=== PATIENT | female | born 1965 | race Caucasian/White ===

== ENCOUNTER 2019-12-18 09:47 | Inpatient (IN) ==
--- NOTE | 2019-08-28 11:57 | Anesthesiology Consultation ---
Date of Service August 28, 2019 Assessment & Plan (1) Encounter for pre-operative examination: PCP Clearance 08/20/19 = "Patient is medically stable for surgery." Chart Review Chart Review: Acceptable Risk for Surgery and Patient seen in Pre Admission Testing (08/17/19. Case R/S under new V#) Teaching & Discussion Instructed NPO after midnight before surgery, except medications with 15 cc of water. Medication instructions provided according to the PAT guidelines. History Surgery Operation Date: 10/15/19 09:10 Proposed Procedures p Right Anterior Total Hip Arthroplasty - Karthikeyan Tillman DO Height/Weight Height: 5 ft 2 in Weight: 86.2 kg Allergies Allergy/AdvReac Type Severity Reaction Status Date / Time latex Allergy Mild redness, Verified 08/28/19 11:07 pruritus, swelling tetanus toxoid, adsorbed Allergy Mild redness, Verified 08/28/19 11:07 swelling at injection site Medications Home Medications Medication Instructions Recorded Confirmed Last Taken aspirin [Aspirin Low Dose] 81 mg PO QAM 08/10/19 08/28/19 Unknown cyanocobalamin (vitamin B-12) 500 mcg PO QAM 08/10/19 08/28/19 Unknown [Vitamin B-12] ferrous sulfate 325 mg PO QAM 08/10/19 08/28/19 Unknown lansoprazole 30 mg PO QAM 08/10/19 08/28/19 Unknown melatonin 10 mg PO HS 08/10/19 08/28/19 Unknown meloxicam 15 mg PO QAM 08/10/19 08/28/19 Unknown multivitamin 1 tab PO QAM 08/10/19 08/28/19 Unknown Past Medical History Medical History Anemia Fibromyalgia History of kidney stones Hx of heartburn Obesity Osteoarthritis Rheumatoid arthritis 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, taking Meloxicam for OA Exercise / Class Metabolic Activity II 4-5 Yardwork/Stairs/Walk up hill Past Family History Family History Grandmother (Maternal) Family history of diabetes mellitus Mother Family history of diabetes mellitus Past Surgical History Surgical History History of partial hysterectomy History of total left hip replacement Hx of cholecystectomy Hx of ovarian cystectomy Hx of partial thyroidectomy Nausea and vomiting after administration of anesthetic agent Past Anesthesia History No Hx of Anesthesia Complications (other than PONV) and No Family Hx of Anesthesia Complications History of PONV No Hx of Motion Sickness and History of PONV Social History Smoking Status: Never smoker Do You Dip or Chew Tobacco: No Hx Alcohol Use: No Hx Substance Use: No Review of Systems Pt denies any recent chest pain, shortness of breath, palpitations, cough, fever or URI. Physical Exam Vital Signs Vital Signs BP: 115/69 P: 70bpm SPO2: 97% RA T: 97.6 F R: 12 ENMT Mouth: + dental restorations (fillings only) and + chipped teeth (lower L molar); no loose teeth Thyromental Distance: > or= 3.5 Finger Breadths (4) Mallampati Class: I Neck normal visual inspection and + limited neck extension Respiratory normal respiratory effort Auscultation: lungs clear to auscultation bilaterally Cardiovascular Rate/Rhythm: regular rate and regular rhythm Heart Sounds: no murmur Extremities: no edema Testing Laboratory Results 08/17/19 WBC: 6.05 H/H: 12.9/40.4 PLATELETS: 252 SODIUM: 144 POTASSIUM: 4.2 CHLORIDE: 111 CO2: 28 BUN: 16 CREATININE: 0.75 GLUCOSE: 71 A1C: 6.0% PT: 10.3 PTT: 26.7 INR: 1.0 UA: negative for bacteria TYPE AND SCREEN: A negative; antibody negative Electrocardiogram Date: 08/17/19 Findings: + NSR @ (66bpm) Chest X-Ray Date: 08/17/19 Findings: + NAD
--- NOTE | 2019-12-15 18:53 | History & Physical Report ---
Date of Service December 18, 2019 Assessment & Plan (1) Degenerative joint disease of right hip: I have indicated the patient for right anterior total hip replacement. The risks, benefits and complications of surgery were explained to the patient which include but not limited to infection, acute blood loss, DVT/PE, injury to nerves, vessels, bone, soft tissue, arthrofibrosis, chronic pain, failure of the prosthesis, hip dislocation, leg length discrepancy, need for additional surgery, cardiac and pulmonary events and . The patient wished to proceed with surgery and informed consent was obtained at this time. We will plan for 81mg ASA BID post-operatively for DVT prophylaxis. Upon discharge the patient will be discharged home with home health services. Appropriate clearances by PCP were obtained. History of Present Illness Chief Complaint: Right hip pain/djd The patient is a 53 year old female who presents with complaints of severe right hip pain and DJD. The patient has failed outpatient conservative treatments to this point which included NSAIDS, home exercise/walking program. Patient declined corticosteroid injection. The patient's pain and limited function have progressed to the point where they severely hinder their activities of daily living and they no longer tolerate exercise programs. They are requesting to proceed with total hip replacement surgery. Allergies Allergy/AdvReac Type Severity Reaction Status Date / Time latex Allergy Mild redness, Verified 12/18/19 10:22 pruritus, swelling tetanus toxoid, adsorbed Allergy Mild redness, Verified 12/18/19 10:22 swelling at injection site Home Medications Home Medications Medication Instructions Recorded Confirmed Type aspirin [Aspirin Low Dose] 81 mg PO QAM 08/10/19 12/18/19 History cyanocobalamin (vitamin B-12) 500 mcg PO QAM 08/10/19 12/18/19 History [Vitamin B-12] ferrous sulfate 325 mg PO QAM 08/10/19 12/18/19 History lansoprazole 30 mg PO QAM 08/10/19 12/18/19 History melatonin 10 mg PO HS 08/10/19 12/18/19 History meloxicam 15 mg PO QAM 08/10/19 12/18/19 History multivitamin 1 tab PO QAM 08/10/19 12/18/19 History Past Med/Surg History Medical History Anemia Fibromyalgia History of kidney stones Hx of heartburn Obesity Osteoarthritis Rheumatoid arthritis 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, taking Meloxicam for OA Surgical History History of partial hysterectomy History of total left hip replacement Hx of cholecystectomy Hx of ovarian cystectomy Hx of partial thyroidectomy Nausea and vomiting after administration of anesthetic agent Family History Grandmother (Maternal) Family history of diabetes mellitus Mother Family history of diabetes mellitus Social History Preferred Language: Belarusian Communication Ability: Effective Silo Worker Required: No Beliefs That Will Affect Care: None Current Living Situation: Spouse Feels Safe at Home: Yes Safety Concerns: Feels Safe At This Time Smoking Status: Never smoker Do You Dip or Chew Tobacco: No ; Second Hand Exposure: Yes ( A CHILD) ; Tobacco Cessation Education Requested by Patient: No Hx Alcohol Use: Yes Hx Substance Use: No Review of Systems Review of Systems: All systems reviewed & are unremarkable except as noted in HPI & below Constitutional: as per Subjective / HPI Physical Exam Physical Exam: RLE NVSI +EHL/FHL/TA/GS SILT grossly, +2 DP pulse, compartments soft NT, limited painful ROM of the hip, antalgic gait. Constitutional: WD/WN, vitals as above Eyes: PERRL, conjunctivae normal, anicteric sclerae ENMT: external ear and nose normal, oropharynx normal Neck: trachea midline, no thyromegaly Respiratory: normal respiratory effort, lungs clear to auscultation Cardiovascular: RRR, no murmur, no edema Gastrointestinal (Abdomen): normal bowel sounds, soft, nontender, no hepatosplenomegaly Musculoskeletal: no cyanosis or clubbing, extremities motor strength 5/5 Skin: no rashes, warm and dry Neurologic: patellar DTR's 2+ bilat, sensation intact Psychiatric: A+Ox3, euthymic affect Lymphatic: no cervical or axillary lymphadenopathy Results & Data Results & Data ([place]) Diagnostic Findings Multiple views of the hip demonstrates severe DJD with complete loss of the joint space. +osteophytes, +sclerosis, +subchondral cysts.
[~2019-12-18 09:47] MED LIST: ACETAMINOPHEN 500 MG TAB PO SCH; BUPIVACAINE 0.5 % 5 MG/1 ML PF 10ML VIAL ONE; CEFAZOLIN 2000MG 2,000 MG/15 ML SYR IV SCH; CeleBREX 200 MG CAP PO SCH; FAMOTIDINE 20 MG TAB PO SCH; GABAPENTIN 600 MG DOSE PO SCH; LR 500ML BOLUS, THEN 15ML/HR IV SCH; METOCLOPRAMIDE HCL 10 MG TABLET PO SCH; OXYCODONE HCL 10 MG TABCR (OXYCONTIN) PO SCH; TRANEXAMIC ACID 1,000 MG **IV Intra-op IV SCH; TRANEXAMIC ACID 1,000 MG **IV Pre-op IV SCH
--- NOTE | 2019-12-18 11:08 | History & Physical Bridge Note ---
Date of Service December 18, 2019 History & Physical Bridge Note I have examined the patient, reviewed the History & Physical and in the interval since the performance of the History & Physical I have noted the following changes of clinical significance: no changes noted
[2019-12-18] MEDS ORDERED: ORTHO JOINT ANESTHETIC ONE (11:16)
[2019-12-18] MEDS ORDERED: BACITRACIN INJ 50,000 UNIT VIAL ONE (11:16)
[2019-12-18] MEDS ORDERED: ONDANSETRON INJ 2 MG/ML 2 ML VIAL IV PRN ×2 (11:17→16:17)
[2019-12-18] MEDS ORDERED: ATROPINE SULFATE 0.1 MG/ML 10ML SYR IV PRN (11:17)
[2019-12-18] MEDS ORDERED: ePHEDrine sulfate 50 MG/ML AMP IV PRN (11:17)
[2019-12-18] MEDS ORDERED: ROPIVACAINE 0.5% HCL/PF 150 MG, BUPIVACAINE 0.5% MPF 30 ML, EPINEPHrine 0.15 MG, Ketoro... INFIL SCH (12:00)
--- NOTE | 2019-12-18 13:27 | Post Operative Brief Note ---
Immediate Post Op Note v1 Date of Surgery December 18, 2019 Pre & Post Diagnosis Operation Date: 10/15/19 09:20 <No data on this case meets the specified criteria> Operation Date: 12/18/19 11:55 Pre-Op Diagnosis: Right Hip Degenerative Joint Disease Post-Op Diagnosis: Right Hip Degenerative Joint Disease I identified the patient and participated in the time-out.: No Procedure Operation Date: 10/15/19 09:20 <No data on this case meets the specified criteria> Operation Date: 12/18/19 11:55 Actual Procedures p Right Anterior Total Hip Arthroplasty--Uncemented(Right) - Karthikeyan Tillman DO Surgeon Karthikeyan Tillman DO Training And Development Manager Calixto Alvarenga Estimated Blood Loss 190 Findings Consistent with Post-Op Diagnosis Fluids 1400 cc LR Specimens femoral head Anesthesia Type Spinal MAC Complications none Disposition Disposition: Recovery Room Overlapping Procedure I was present for: the critical portions of procedure. I was immediately available: during the entire case. Back up surgeon: was not required during procedure.
--- NOTE | 2019-12-18 13:27 | Fluoroscopy Report ---
FL hip RT 1V CLINICAL HISTORY: RT ANTERIOR HIP COMPARISON STUDY: None. FLUOROSCOPY TIME: 1 minute 1 second. FINDINGS: 2 fluoroscopic spot images of the right hip demonstrate a right total arthroplasty. The martha dware is intact. No fracture or dislocation. IMPRESSION: Fluoroscopy provided for right hip arthroplasty. ACT 112: Negative or not required by law. Electronically signed by: Jens Yun M.D. 12/18/2019 1:26 PM
--- NOTE | 2019-12-18 13:30 | Operative Report ---
Post Operative Report Pre & Post Diagnosis Operation Date: 10/15/19 09:20 <No data on this case meets the specified criteria> Operation Date: 12/18/19 11:55 Pre-Op Diagnosis: Right Hip Degenerative Joint Disease Post-Op Diagnosis: Right Hip Degenerative Joint Disease I identified the patient and participated in the time-out.: No Procedure Operation Date: 10/15/19 09:20 <No data on this case meets the specified criteria> Operation Date: 12/18/19 11:55 Actual Procedures p Right Anterior Total Hip Arthroplasty--Uncemented(Right) - Karthikeyan Tillman DO Surgeon Karthikeyan Tillman DO Pharmacogeneticist Calixto Alvarenga Estimated Blood Loss 190 Findings Consistent with Post-Op Diagnosis Fluids Working 100 cc LR Specimens Femoral head Anesthesia Type Spinal MAC Complications none Disposition Disposition: Recovery Room Indications The patient is a 53-year-old female who presents with severe progressive right hip DJD who has failed outpatient conservative treatments. I indicated the patient for a anterior total hip replacement and the risks and benefits were explained in detail which include but not limited to infection, bleeding, blood clot, damage to surrounding bone, nerves, vessels, soft tissue, hip dislocation, failure of the prosthesis, leg length discrepancy, need for additional surgery and . The patient agreed to proceed with replacement of the hip and informed consent was obtained. Appropriate clearances were obtained. Description of Procedure COMPONENTS USED: [employer] hip system: Acetabulum size 52, femur size 5 high offset, femoral head 36+0, liner 5236, acetabular screw 30 mm x 1. DESCRIPTION OF PROCEDURE: Following satisfactory spinal anesthesia, the patient was placed supine on the OR table. The left leg was placed in the well leg reynolds and the right leg in the traction device. The right leg was prepared with ChloraPrep and draped sterilely. A surgical timeout was performed, patient identified and site ann verified. Appropriate antibiotics were given. A standard anterior approach in the interval between the sartorius and tensor muscles was performed. Dissection was carried down through subcutaneous tissues. Electrocautery was utilized for hemostasis. Circumflex femoral vessels were identified, tied and ligated. The anterior capsular fat pad was removed and the capsulotomy was performed revealing the arthritic femoral neck and head. A femoral neck cut was made with reciprocating saw and the bone fra gments removed. The acetabular self-retraining retractor was placed. Acetabular reaming was completed under fluoroscopic guidance, a 52 shell was impacted into an anatomic position and secured with a dome screw. Local anesthetic was placed and following irrigation, the polyethylene liner was placed. The femur was placed into position of external rotation, extension and adduction. Femoral canal was prepared up to the size 5 high offset. Trial reduction with a 36+0 neck length head showed good soft tissue tension, leg lengths restored, and good fit and fill of the proximal canal using fluoroscopic landmarks. The hip was dislocated. The trial component was removed. The final implant was placed. The hip was irrigated with sterile saline solution and reduced. A Betadine soak was performed. After 3 minutes, the hip was once more irrigated with copious sterile saline solution with bacitracin. Purvi-incisional soft tissue was injected utilizing [place] [employer] which includes a combination of Ropivicaine 0.5% 150mg, Bupivicaine 0.5%/Epinephrine 1:200,000 30ml, Toradol 30mg, Dexamethasone 4mg, Ketamine 10mg, Clonidine 100mcg and NSS 30ml solution. The capsule was then closed with 1-0 Vicryl interrupted figure of eight sutures. The fascia was closed with a running suture of #1 Vicryl, the subcutaneous tissues with 2-0 Vicryl and the skin was closed with ken. A sterile dry dressing was applied which included Ruth incisional VAC. The patient tolerated the procedure well and was transported to PACU in stable condition. Due to the complex nature of the procedure, the entire surgery was performed with the operational assistance of Calixto alvarenga PA-C. The assistant professor of psychology, under direct supervision, was involved in the actual performance of all aspects of the surgical procedure including patient positioning, hemostasis, tissue retraction, instrument management and wound closure. I attest to the content of the Intraoperative Record and any orders documented therein. Any exceptions are noted below.
[2019-12-18] MEDS ORDERED: PROPOFOL IV EMULSION 10 MG/ML 20 ML VIAL IV ONE (14:18)
[2019-12-18] MEDS ORDERED: fentaNYL citrate 100 MCG/2 ML VIAL IV ONE (14:18)
[2019-12-18] MEDS ORDERED: LIDOCAINE HCL 2% 2 ML VIAL/AMP(20MG/ML) INFIL ONE (14:18)
[2019-12-18] MEDS ORDERED: MIDAZOLAM HCL 1 MG/ML 2ML VIAL IV ONE (14:18)
--- NOTE | 2019-12-18 14:18 | Anesthesiology Progress Note ---
Date of Service December 18, 2019 Anesthesia Post Procedure Vital Signs Vital Signs: Temp Pulse Resp BP Pulse Ox 12/18/19 14:00 73 16 99/60 L 96 12/18/19 13:50 68 12 102/68 97 12/18/19 13:40 36.0 C L 70 19 103/63 100 12/18/19 11:15 63 18 119/78 99 12/18/19 10:14 36.7 C 67 20 138/82 99 Pain Intensity Right Hip: Pain Intensity: 0 Transfer of Care Handoff Completed per policy Notes Mental Status: alert / awake / arousable Patient Amnestic to Procedure: Yes Nausea / Vomiting: adequately controlled Pain: adequately controlled Airway Patency, RR, SpO2: stable & adequate BP & HR: stable & adequate Hydration State: stable & adequate Neuraxial Anesthesia: was administered and sensory block is resolving Anesthetic Complications: no major complications apparent and Pt Satisfied with anesthetic care
--- NOTE | 2019-12-18 14:18 | XRay Report ---
AP PELVIS, CROSSTABLE LATERAL RIGHT HIP History: Right total hip arthroplasty. Degenerative arthritis. Postop. FINDINGS: The patient is status post a right total hip arthroplasty. The hardware is intact. No fract ure or dislocation. Skin ken are in place. IMPRESSION: Right total hip arthroplasty. No evidence for hardware complication ACT 112: Negative or not required by law. Electronically signed by: Jens Yun M.D. 12/18/2019 2:16 PM
--- NOTE | 2019-12-18 15:12 | Orthopedic Progress Note ---
Date of Service December 18, 2019 Assessment & Plan (1) Degenerative joint disease of right hip: s/p Right anterior SHARON -ancef x 24 -DVT ppx: SCDs, TEDs, 81mg ASA BID -WBAT RLE -PT/OT -PO XR demonstrates well aligned well fixed prothesis without fracture/dislocation -am labs -DC planning Subjective Post Operative Progress Note Patient seen sitting up in bed, comfortable, denies complaints, pain well controlled, no acute issues. Still feeling effects of spinal anesthesia. Review of Systems Review of Systems: All systems reviewed & are unremarkable except as noted in HPI & below Constitutional: as per Subjective / HPI Physical Exam Physical Exam: RLE PE limited secondary to spinal anesthesia, +2 DP pulse, compartments soft NT, dressing CDI Constitutional: WD/WN, vitals as above Results & Data ([facility]) Vital Signs (Past 12 Hours) Vital Signs Temp Pulse Resp BP Pulse Ox 12/18/19 15:00 67 13 86/57 L 95 12/18/19 14:45 34.7 C L 66 12 92/55 L 93 12/18/19 14:30 67 17 93/54 L 94 12/18/19 14:20 66 13 95/56 L 94 12/18/19 14:10 34.8 C L 66 12 112/54 L 95 12/18/19 14:00 73 16 99/60 L 96 12/18/19 13:50 68 12 102/68 97 12/18/19 13:40 36.0 C L 70 19 103/63 100 12/18/19 11:15 63 18 119/78 99 12/18/19 10:14 36.7 C 67 20 138/82 99
[2019-12-18] MEDS ORDERED: NALOXONE HCL 0.4 MG/1 ML VIAL/CARP IV PRN (16:17)
[2019-12-18] MEDS ORDERED: MAGNESIUM HYDROXIDE SUSP 30 ML UDC PO PRN (16:17)
[2019-12-18] MEDS ORDERED: METOCLOPRAMIDE HCL INJ 5 MG/ML 2 ML VIAL IV PRN (16:17)
[2019-12-18] MEDS ORDERED: HYDROmorphone INJ 0.5 MG/0.5 ML SYR IV PRN (16:17)
[2019-12-18] MEDS ORDERED: OXYCODONE HCL IR 5 MG TAB (IMMEDIATE RELEASE) PO PRN (16:17)
[2019-12-18] MEDS ORDERED: bisacodyL 10 MG SUPP PR PRN (16:17)
[2019-12-18] MEDS: ACETAMINOPHEN 500 MG TAB PO SCH ×2 (17:22→21:46)
[2019-12-18] MEDS: SODIUM CHLORIDE 0.9% 1000ML 1,000 ML IV SCH (17:22)
[2019-12-18] MEDS: KETOROLAC TROMETHAMINE 15 MG/ML VIAL IV SCH (17:22)
[2019-12-18] MEDS: CEFAZOLIN 2000MG 2,000 MG/15 ML SYR IV SCH (20:18)
[2019-12-18] MEDS: DOCUSATE SODIUM 100 MG CAP PO SCH (20:19)
[2019-12-18] MEDS ORDERED: SENNA 8.6 MG TAB PO SCH (21:00)
[2019-12-18] MEDS ORDERED: MELATONIN 3 MG TAB PO SCH (21:00)
[2019-12-18] MEDS ORDERED: CeleBREX 200 MG CAP PO SCH (21:00)
[2019-12-19] MEDS: KETOROLAC TROMETHAMINE 15 MG/ML VIAL IV SCH ×3 (00:03→12:45)
[2019-12-19] MEDS: CEFAZOLIN 2000MG 2,000 MG/15 ML SYR IV SCH (03:36)
[2019-12-19] MEDS: SODIUM CHLORIDE 0.9% 1000ML 1,000 ML IV SCH (03:36)
[2019-12-19] MEDS: ACETAMINOPHEN 500 MG TAB PO SCH ×2 (05:41→13:32)
[2019-12-19 06:14] LABS: Basophils # (auto) 0.03 K/uL (0-0.2); Basophils % (auto) 0.3 %; Eosinophils # (auto) 0.13 K/uL (0-0.5); Eosinophils % (auto) 1.2 %; Immature Granulocytes # (auto) 0.01 K/uL (0.00-0.02); Immature Granulocytes % (auto) 0.1 %; Lymphocytes # (auto) 0.72 K/uL (1.2-3.4); Lymphocytes % (auto) 6.6 %; Mean Corpuscular Hemoglobin 28.4 pg (25-34); Mean Corpuscular Hgb Conc 32.4 g/dL (32-36); Mean Corpuscular Volume 87.9 fL (80-100); Mean Platelet Volume 9.9 fL (7.4-10.4); Monocytes % (auto) 4.6 %; Neutrophils # (auto) 9.49 K/uL (1.4-6.5); Neutrophils % (auto) 87.2 %; Platelet Count 208 K/uL (130-400); RDW Coefficient of Variation 14.1 % (11.5-14.5); Red Blood Count 3.87 M/uL (4.2-5.4); White Blood Count 10.88 K/uL (4.8-10.8)
[2019-12-19 06:50] LABS: Calcium 7.9 mg/dl (8.5-10.1); Creatinine Clr Calc Pharmacy 125.5 ml/min; Est GFR (African American) 124.7; Est GFR (Non-African American) 107.6
--- NOTE | 2019-12-19 08:27 | Orthopedic Progress Note ---
Date of Service December 19, 2019 Assessment & Plan (1) Degenerative joint disease of right hip: s/p Right anterior SHARON POD#1 -ancef x 24 -DVT ppx: SCDs, TEDs, 81mg ASA BID -WBAT RLE -PT/OT -PO XR demonstrates well aligned well fixed prothesis without fracture/dislocation -am labs - as above, hgb 11.0 -DC planning - home with HH Admission and Anticipated Discharge Date Admission Date: December 18, 2019 Subjective Post Operative Progress Note Patient seen sitting up in bed, comfortable, denies complaints, pain well controlled, no acute issues. Denies F/C/N/V/SOB/CP. Review of Systems Review of Systems: All systems reviewed & are unremarkable except as noted in HPI & below Constitutional: as per Subjective / HPI Physical Exam Physical Exam: RLE NVSI +EHL/FHL/TA/GS SILT grossly, +2 DP pulse, compartments soft NT, dressing cdi. Constitutional: WD/WN, vitals as above Results & Data ([facility]) Vital Signs (Past 12 Hours) Vital Signs Temp Pulse Resp BP Pulse Ox 12/19/19 08:19 36.4 C L 88 16 130/82 97 12/19/19 03:18 36.5 C 70 14 115/75 95 12/18/19 23:15 36.5 C 68 14 97/65 L 95 Laboratory Results 12/19/19 12/19/19 12/18/19 Range/Units 05:54 05:54 10:47 WBC 10.88 H (4.8-10.8) K/uL RBC 3.87 L (4.2-5.4) M/uL Hgb 11.0 L (12.0-16.0) g/dL Hct 34.0 L (37-47) % MCV 87.9 (80-100) fL MCH 28.4 (25-34) pg MCHC 32.4 (32-36) g/dL RDW Std Deviation 45.0 (36.4-46.3) fL RDW Coeff of Marianela 14.1 (11.5-14.5) % Plt Count 208 (130-400) K/uL MPV 9.9 (7.4-10.4) fL Immature Gran % (Auto) 0.1 % Neut % (Auto) 87.2 % Lymph % (Auto) 6.6 % [place] % (Auto) 4.6 % Eos % (Auto) 1.2 % Baso % (Auto) 0.3 % Neut # (Auto) 9.49 H (1.4-6.5) K/uL Lymph # (Auto) 0.72 L (1.2-3.4) K/uL [place] # (Auto) 0.50 (0.11-0.59) K/uL Eos # (Auto) 0.13 (0-0.5) K/uL Baso # (Auto) 0.03 (0-0.2) K/uL Immature Gran # (Auto) 0.01 (0.00-0.02) K/uL Sodium 143 (136-145) mmol/L Potassium 4.0 (3.5-5.1) mmol/L Chloride 112 H (98-107) mmol/L Carbon Dioxide 26 (21-32) mmol/L Anion Gap 5.0 (3-11) BUN 8 (7-18) mg/dl Creatinine 0.52 L (0.6-1.2) mg/dl Est Cr Clr Drug Dosing 125.5 ml/min Est GFR ( Amer) 124.7 Est GFR (Non-Af Amer) 107.6 BUN/Creatinine Ratio 16.0 (10-20) Glucose 97 (70-99) mg/dl Calcium 7.9 L (8.5-10.1) mg/dl Blood Type A Negative Antibody Screen NEGATIVE 12/18/19 Range/Units 10:03 WBC (4.8-10.8) K/uL RBC (4.2-5.4) M/uL Hgb (12.0-16.0) g/dL Hct (37-47) % MCV (80-100) fL MCH (25-34) pg MCHC (32-36) g/dL RDW Std Deviation (36.4-46.3) fL RDW Coeff of Marianela (11.5-14.5) % Plt Count (130-400) K/uL MPV (7.4-10.4) fL Immature Gran % (Auto) % Neut % (Auto) % Lymph % (Auto) % [place] % (Auto) % Eos % (Auto) % Baso % (Auto) % Neut # (Auto) (1.4-6.5) K/uL Lymph # (Auto) (1.2-3.4) K/uL [place] # (Auto) (0.11-0.59) K/uL Eos # (Auto) (0-0.5) K/uL Baso # (Auto) (0-0.2) K/uL Immature Gran # (Auto) (0.00-0.02) K/uL Sodium (136-145) mmol/L Potassium (3.5-5.1) mmol/L Chloride (98-107) mmol/L Carbon Dioxide (21-32) mmol/L Anion Gap (3-11) BUN (7-18) mg/dl Creatinine (0.6-1.2) mg/dl Est Cr Clr Drug Dosing ml/min Est GFR ( Amer) Est GFR (Non-Af Amer) BUN/Creatinine Ratio (10-20) Glucose (70-99) mg/dl Calcium (8.5-10.1) mg/dl Blood Type Cancelled Antibody Screen Cancelled
[2019-12-19] MEDS ORDERED: MULTIVITAMIN TAB PO SCH (09:00)
[2019-12-19] MEDS ORDERED: FERROUS SULFATE 325 MG TAB PO SCH (09:00)
[2019-12-19] MEDS ORDERED: ASPIRIN 81 MG ECTAB PO SCH (09:00)
[2019-12-19] MEDS ORDERED: LANSOPRAZOLE 30 MG SOLTAB PO SCH (09:00)
[2019-12-19] MEDS: DOCUSATE SODIUM 100 MG CAP PO SCH (09:06)
[2019-12-19] MEDS ORDERED: CeleBREX 200 MG CAP PO SCH (21:00)
--- NOTE | 2019-12-19 21:05 | Discharge Summary ---
Date of Service December 19, 2019 Admission HPI Per Admitting Provider The patient is a 53 year old female who presents with complaints of severe right hip pain and DJD. The patient has failed outpatient conservative treatments to this point which included NSAIDS, home exercise/walking program. Patient declined corticosteroid injection. The patient's pain and limited function have progressed to the point where they severely hinder their activities of daily living and they no longer tolerate exercise programs. They are requesting to proceed with total hip replacement surgery. Principal Diagnosis Right anterior total hip replacement -Right hip DJD Discharge Exam RLE NVSI +EHL/FHL/TA/GS SILT grossly, +2 DP pulse, compartments soft NT, dressing cdi. Constitutional WD/WN, vitals as above Discharge Data Allergies Allergy/AdvReac Type Severity Reaction Status Date / Time latex Allergy Mild redness, Verified 12/18/19 10:22 pruritus, swelling tetanus toxoid, adsorbed Allergy Mild redness, Verified 12/18/19 10:22 swelling at injection site Consultations 12/19/19 08:00 Consult Case Management - Discharge Planning Routine Procedures Performed Operation Date: 10/15/19 09:20 <No data on this case meets the specified criteria> Operation Date: 12/18/19 11:55 Actual Procedures p Right Anterior Total Hip Arthroplasty--Uncemented(Right) - Karthikeyan Tillman DO Ordered Studies 12/18/19 11:55 FL fluoroscopy <1hr Routine FL hip RT 1V Routine Hospital Course (1) Degenerative joint disease of right hip: The patient is a 53 -year-old female who presents with long standing history of severe right hip DJD and failed outpatient conservative treatments. The patient's symptoms have progressed to the point where it has been difficult to perform even normal activities of daily living. I indicated the patient for a right anterior total hip arthroplasty, the risks, benefits and complications of the procedure include but not limited to infection, bleeding, damage to bone, nerves, vessels, surrounding soft tissue, may develop blood clots, loss of function, leg length discrepancy, dislocation, failure of the components, loosening of the components, the need for additional surgery and . The patient wished to proceed with surgery at this time and informed consent was obtained. Hospital Course: On 12/18/19 the patient was taken to the operating room, adequate anesthesia administered and underwent a right anterior total hip arthroplasty. The patient tolerated the procedure well and was taken to the PACU in stable condition. Post-operatively the patient was started on a DVT ppx medication and given appropriate IV antibiotics. Consults were placed to physical therapy, occupational therapy and case management. On POD#1, the patient did well overnight and their pain was well controlled. Labs were drawn and the Hgb was 11.0. The patient progressed well with PT. Dressings were changed at this time and the incision was clean, dry and intact. The patients hospital stay was relatively uneventful and they were deemed stable by the orthopedic team and consultants to be discharged home with HH on 12/19/19. Discharge Instructions: Upon discharge the patient may weight bear as tolerates through their operative extremity. They were instructed to keep the incision clean and dry at all times. The patient may shower but should not submerge the incision, avoid bathing, pools and hot tubes. The patient was given a script for pain medication and should take as instructed. The patient was given a script for DVT ppx 81mg ASA BID and should take as directed. The patient was instructed to not drive or travel for long distances until cleared to do so. If the patient develops any symptoms of fevers, chills, nausea, vomiting, increased redness, swelling, pain or drainage from the surgical site, they should notify the office and/or proceed to the nearest emergency room. The patient should follow up in 10-14 days after surgery for their routine post-operative follow-up appointment and should call the office to confirm the date and time. s/p Right anterior SHARON POD#1 -ancef x 24 -DVT ppx: SCDs, TEDs, 81mg ASA BID -WBAT RLE -PT/OT -PO XR demonstrates well aligned well fixed prothesis without fracture/dislocation -am labs - as above, hgb 11.0 -DC planning - home with Total Time Total Time Spent Total Time Spent (In Minutes): 30 Discharge Plan Discharge Items Patient Disposition: Home - Home Health Services Reason For Visit: RIGHT HIP OSTEOARTHRITIS Discharge Diagnosis: Right anterior total hip replacement -Right hip djd Condition on Discharge: Good Activity: Per Instructions section Lifting: Wait until after follow-up appointment Bathing: Keep incision dry Bathing Comment: No bathing, pools or hot tubs. Sexual Activity: Wait until after follow-up appointment Exercise/Sports: Wait until after follow-up appointment Driving/Machine Use: No driving Weightbearing: Full weightbearing Non-emergency contact: Primary Care Provider and Surgeon Call non-emergency contact if: you have any medication questions, your symptoms worsen, your pain is not controlled, your pain is worsening, your pain is unusual for you, your pain is concerning for you, you have a fever, your temperature is above 101, your wound has increased redness, your wound has increased drainage and your wound pain has increased Follow-up/Referrals: PCP,NO [Primary Care Provider] - Diet: Regular Addtl Attending Provider Instructions: ACTIVITY RECOMMENDATIONS: SELF CARE INSTRUCTIONS AFTER TOTAL HIP REPLACEMENT : Direct Anterior Approach Until the incision and soft tissues around your hip have healed, there is a possibility that the hip prosthesis could dislocate. A. Hip flexion ( Up & Down out of chair or steps ) may be difficult. This is normal. B. Numbness in front of the thigh is also normal for a few weeks. C. Use hand rails when walking on stairs. D. Wear low heeled shoes with non-slip soles. E. Be sure that your floors are free of things that could trip you - throw rugs, electrical cords, small objects. Avoid wet and waxed floors, especially with crutches and canes. F. Try to walk several times a day with rest periods between. G. Continue with all the exercises taught to you in the hospital. Again, make walking a part of your daily routine. SPECIAL CARE INSTRUCTIONS: VERY IMPORTANT TO READ AND REVIEW A. You may still be at risk for phlebitis and blood clots. 1. Wear surgical stockings (BONNY hose) for 2 weeks after surgery to improve circulation and reduce swelling. 2. Take Aspirin 81mg twice daily for 4 weeks or as directed by your doctor. This is your blood thinner. 3. High risk patients may be prescribed a stronger blood thinner if necessary. 4. If you are on Coumadin normally, your family doctor/manager motor should monitor your blood work. Expect a phone call the day of or the day after bloodwork is drawn to adjust your dosage. B. You must take antibiotics before having dental work, bladder, bowel and other surgery. Your doctor will provide you with a permanent card to carry describing precautions. C. Call [facility] [place] if you have a fever, redness or swelling around the incision, cloudy drainage from incision, or sudden increase in pain in your hip, not relieved by your regular pain medication. D. Please call the office at if you have any concerns or questions about your operation or recovery. * YOU MAY SHOWER, NO TUB BATHS UNTIL CLEARED BY YOUR DOCTOR. - Keep an extra close eye on the top portion of your incision. Be sure to keep clean & dry. * WEAR BONNY HOSE 20 HOURS PER DAY FOR 2 WEEKS. * YOU MAY PROGRESS FROM A WALKER, TO A CANE, TO INDEPENDENT AT YOUR OWN PACE. * MOST PATIENTS WILL HAVE HOME NURSING FOR THERAPY. IF YOU DECIDE TO DO OUTPATIENT PHYSICAL THERAPY, PLEASE SCHEDULE THIS 3 TIMES PER WEEK. *PREVENA incisional vac is a special dressing covering your incision. This dressing provides a sterile dry environment while you are healing. The dressing is to be left in place for 7 days post-operatively. Your home nurse or surgeon will remove. If you develop any redness or blisters or have any questions notify your surgeon immediately. FOLLOW UP VISIT: If appointment is not already scheduled: Please call [facility] [place] to make a follow-up appointment for 2 weeks after your surgery at . Pending Studies at Discharge: No Stand-Alone Forms: My [facility] Experiment, Opioid Pain Management, Smoking Cessation Medications and DC Order Prescriptions: New celecoxib [Celebrex] 200 mg Capsule 200 mg PO BID PRN (Reason: pain/inflammation) Qty: 28 RF: 0 aspirin 81 mg Tablet,Delayed Release (Dr/Ec) 81 mg PO BID Qty: 56 RF: 0 acetaminophen 500 mg Tablet 1,000 mg PO Q8 PRN (Reason: pain/fever) Qty: 90 RF: 0 oxycodone 5 mg Tablet 5 mg PO Q6H MDD 4 PRN (Reason: pain) Qty: 30 RF: 0 sennosides [Senokot] 8.6 mg Tablet 17.2 mg PO HS PRN (Reason: constipation) Qty: 28 RF: 0 Continued lansoprazole 30 mg Tablet,Disintegrat, Delay Rel 30 mg PO QAM RF: 0 multivitamin Tablet 1 tab PO QAM RF: 0 cyanocobalamin (vitamin B-12) [Vitamin B-12] 500 mcg Tablet 500 mcg PO QAM RF: 0 ferrous sulfate 325 mg (65 mg iron) Tablet 325 mg PO QAM RF: 0 melatonin 10 mg Tablet 10 mg PO HS RF: 0 Discontinued meloxicam 15 mg Tablet 15 mg PO QAM RF: 0 aspirin [Aspirin Low Dose] 81 mg Tablet,Delayed Release (Dr/Ec) 81 mg PO QAM RF: 0 Discharge Orders: Discharge Order (Routine); Ordered 12/19/19 Ordered By: Karthikeyan Rivas/Other Patient Handouts: DVT Post Op Prevention Admission Data Admit Date/Time: 12/18/19 14:01 Attending Provider: Karthikeyan Tillman Admit Provider: Karthikeyan Tillman Primary Care Provider: PCP,NO Other Interventions: Discharge Summary Assessment (RN) Last Done: 12/19/19 11:14 DC Date/Time DO NOT enter until pt leaves facility: 12/19/19 14:19
== END 2019-12-19 14:19 | disposition home health service (06) | DRG 470 ==
LOC: ASU 09:47 → 3E 14:01